=== PATIENT | male | born 1950 ===

== ENCOUNTER 2020-10-17 06:15 | Day surgery (SDC) | payer OTHER ==
[~2020-10-17 06:15] MED LIST: GLIMEPIRIDE2 MG; METFORMIN HCL500 M1 PO; PROPRANOLOL HCL10 MG PO
== END 2020-10-17 15:40 | disposition home or self-care (01) ==
LOC: CIR.AMB 06:15
PROVIDERS: ATTEND Colon & Rectal Surgery
DX: D12.9 Benign neoplasm of anus and anal canal (principal); K60.1 Chronic anal fissure; K64.8 Other hemorrhoids; Z20.822 Contact with and (suspected) exposure to COVID-19